=== PATIENT | female | born 1995 | race Caucasian/White ===

== ENCOUNTER → 2018-01-10 | Outpatient (CLI) | payer OTHER ==
[~2018-01-10] MED LIST: CEPH500C24 PO; OXYC-865 PO; PROM-110 PO; SULF-198 PO
== END ==
LOC: LAB 15:11
PROVIDERS: ATTEND Internal Medicine Rheumatology
DX: M08.09 Unspecified juvenile rheumatoid arthritis, multiple sites (principal)
CPT/HCPCS: 36415; 86480